=== PATIENT | male | born 1950 | race American Indian/Alaskan Native ===

== ENCOUNTER 2019-02-05 23:54 | Emergency (ER) | payer MEDICARE, MEDICAID | END 2019-02-06 10:44 | disposition home or self-care (01) | LOC: ED 23:54 | CPT/HCPCS: 36415; 70450; 80048; 80320; 85025; G0480 ==

== ENCOUNTER 2019-05-31 12:30 | Emergency (ER) | payer MEDICARE ==
--- NOTE | 2019-05-31 13:59 | Cat Scan Report ---
CT head/brain wo con INDICATION / CLINICAL INFORMATION: 68 years Male; CONFUSED AND DISOREINTED. TECHNIQUE: Routine CT head without contrast. All CT scans at this location are performed using CT dos e reduction for ALARA by means of automated exposure control. COMPARISON: Prior CT - 02/06/2019 FINDINGS: BRAIN / INTRACRANIAL CONTENTS: No acute hemorrhage, mass effect, midline shift, hydrocephalus, or acu te, large territorial infarct. Minimal cerebral atrophy. Mild degree of hippocampal atrophy suggested bilaterally. There are [id number], somewhat confluent areas of decreased attenuation in the white matter of the cerebral hemispheres, as well as the gangliocapsular regions. These are nonspecific findings and may be related to microangiopathy (hypertension, diabetes, atherosclerosis), given the patient's age. It might be difficult to evaluate for small areas of ischemia without diffusion imaging by MRI. Some component of pontine disease may be present. CRANIOCERVICAL JUNCTION: No significant abnormality. ORBITS: No significant abnormality of visualized orbits. SINUSES / MASTOIDS: No significant abnormality the visualized paranasal sinuses or mastoid air cells. ADDITIONAL FINDINGS: Atherosclerotic disease is seen in the anterior and posterior circulation. IMPRESSION: 1. No focal mass, hemorrhage, hydrocephalus, or acute, large territorial infarct. Signer Name: Ricki Ayala MD, III Signed: 05/31/2019 1:54 PM Workstation Name: [id number]
--- NOTE | 2019-05-31 14:52 | Emergency Department Report ---
ED General Adult HPI - General Chief complaint: Altered Mental Status Stated complaint: EYE PAIN Time Seen by Provider: 05/31/19 14:36 Source: patient Mode of arrival: Ambulatory Limitations: Physical Limitation - History of Present Illness Initial comments: 68-year-old male presents to ED with headache and left eye blurry vision for several months. Patient states he has had cataract surgery on both eyes last year. Patient reports he had a fall around [place] time last year, and has been having intermittent headaches since then. Patient also reports vision in his left eye became intermittently blurred 1 month ago. Patient states he has been seen at [place] previously for these headaches and was given a prescription for medication which helped the pain. Triage nurse listed chief complaint is altered mental status, however patient is not altered. Patient is able to tell me his name, date of , current month, current president, and that the current pandemic is due to the coronavirus. Patient is however, confused about the year. Patient denies fever, cough, shortness of breath. -: month(s) (1) Location: head, eyes Severity scale (0 -10): 0 Consistency: intermittent Improves with: medication Worsens with: none Associated Symptoms: headaches. denies: cough, fever/chills, nausea/vomiting, shortness of breath - Related Data Previous Rx's Medication Instructions Recorded Last Taken Type Naproxen [Naprosyn] 375 mg PO BID PRN #20 tablet 05/31/19 Unknown Rx Allergies Allergy/AdvReac Type Severity Reaction Status Date / Time No Known Allergies Allergy Verified 05/31/19 12:31 ED Review of Systems ROS: Stated complaint: EYE PAIN Other details as noted in HPI Comment: All other systems reviewed and negative Constitutional: denies: chills, fever Eyes: vision change Respiratory: denies: cough, shortness of breath Gastrointestinal: denies: nausea, vomiting, diarrhea Neurological: headache ED Past Medical Hx - Past Medical History Hx Diabetes: Yes Additional medical history: CATARACT SURG - Surgical History Additional Surgical History: CATARACT - Social History Smoking Status: Never Smoker Substance Use Type: None - Medications Home Medications: Home Medications Medication Instructions Recorded Confirmed Last Taken Type Naproxen [Naprosyn] 375 mg PO BID PRN #20 tablet 05/31/19 Unknown Rx ED Physical Exam - General Limitations: Physical Limitation General appearance: alert, in no apparent distress - Head Head exam: Present: atraumatic, normocephalic - Eye Eye exam: Present: normal appearance, PERRL, EOMI, other (vision grossly intact in each eye; able to identify colors and tell me how many fingers I am holding up) - ENT ENT exam: Present: mucous membranes moist - Neck Neck exam: Present: normal inspection - Respiratory Respiratory exam: Present: normal lung sounds bilaterally. Absent: respiratory distress - Cardiovascular Cardiovascular Exam: Present: regular rate, normal rhythm - GI/Abdominal GI/Abdominal exam: Present: soft. Absent: distended, tenderness - Extremities Exam Extremities exam: Present: normal inspection - Neurological Exam Neurological exam: Present: alert, oriented X3, CN II-XII intact, normal gait. Absent: motor sensory deficit - Psychiatric Psychiatric exam: Present: normal affect, normal mood - Skin Skin exam: Present: warm, dry, intact, normal color ED Course Vital Signs 05/31/19 05/31/19 12:36 15:03 Temperature 98.2 F Pulse Rate 88 62 Respiratory 20 16 Rate Blood Pressure 157/76 135/69 [Left] O2 Sat by Pulse 96 100 Oximetry ED Medical Decision Making - Radiology Data Radiology results: report reviewed, image reviewed - Medical Decision Making 68-year-old male presents to ED with headache and blurred vision for several months. Patient's vision is grossly intact. No neuro deficits noted. Patient is alert and oriented. CT head negative. No need for admission at this time. Outpatient follow-up advised. Return precautions given. - Differential Diagnosis Intracranial injury, tension headache, cataracts Critical care attestation.: If time is entered above; I have spent that time in minutes in the direct care of this critically ill patient, excluding procedure time. ED Disposition Clinical Impression: Headache, Blurred vision, left eye Disposition: DC- TO HOME OR SELFCARE Is pt being admited?: No Condition: Stable Instructions: Acute Headache (ED), Blurred Vision (ED) Prescriptions: Naproxen [Naprosyn] 375 mg PO BID PRN #20 tablet PRN Reason: pain Referrals: PRIMARY CARE, [Primary Care Provider] - 3-[address] [facility] [Provider Group] - 3-5 Days ROCIO BAINS MD [Staff Physician] - 3-5 Days DANYA GOMEZ MD [Staff Physician] - 3-5 Days Time of Disposition: 14:57
[2019-05-31 15:04] VITALS: BP 135/69
== END 2019-05-31 15:05 | disposition home or self-care (01) ==
LOC: ED 12:30
DX: R51 Headache (principal); H53.8 Other visual disturbances; E11.9 Type 2 diabetes mellitus without complications; Z98.42 Cataract extraction status, left eye
CPT/HCPCS: 70450

== ENCOUNTER 2019-06-24 13:24 | Emergency (ER) | payer MEDICARE ==
--- NOTE | 2019-06-24 16:20 | Emergency Department Report ---
ED Headache HPI - General Chief Complaint: Headache Stated Complaint: HEAD AND EYE PAIN Time Seen by Provider: 06/24/19 15:58 Source: patient Exam Limitations: no limitations - History of Present Illness Initial Comments: 68-year-old male presents to the ER today complaining of headache and blurry vision. Patient is a poor historian, but he reports that he has been having this left frontal/left temporal/left facial headache which has been intermittent since he fell around [facility] of 2018. He also reports that he has been having blurry vision to both eyes since the fall. Patient apparently had cataract surgery to both eyes sometime in 2019, he is not exactly sure when, but he knows it was done at [place]. He states after the surgery his vision was very clear, but since the fall it became blurry, its not any worse today just not getting better like it was. Patient was seen here on May 31, 2019 for similar symptoms. He had a repeat head CT which was negative for anything acute. Patient states that the pain in his head is just a "slight pain, that comes intermittently. patient was prescribed naproxen for pain which he admits that he has been taking as needed for pain and he has been helping. He denies any pain currently. Patient appears to be more concerned about the change in his vision. He denies any photophobia, eye redness, drainage, or double vision. He states that he does not recall the name of the surgeon who did his eye surgery. He states that he has not been able to get down to since the COVID-19 pandemic. He also does not have a primary care doctor. Patient denies any focal weakness, numbness, tingling, fever, chills, URI symptoms, neck pain or any other symptoms at this time. Timing/Duration: other (Since fallMay 30) Quality: mild Head Injury Location: frontal, temporal, other (left facial) Recent Head Trauma: chronic headaches, head trauma > 24 hrs ago (since around [place] of last yr) Associated Symptoms: facial pain. denies: confusion, fatigue, fever/chills, flushing, loss of consciousness, nausea/vomiting, nasal congestion, nasal drainage, numbness in legs/feet, rash, seizures, sinus infection, stiff neck, vision changes, weakness Allergies/Adverse Reactions: Allergies No Known Allergies Allergy (Verified 05/31/19 12:31) Home Medications: Ambulatory Orders Naproxen [Naprosyn] 375 mg PO BID PRN #20 tablet 05/31/19 ED Review of Systems ROS: Stated complaint: HEAD AND EYE PAIN Other details as noted in HPI Constitutional: denies: chills, fever Eyes: vision change. denies: eye pain, eye discharge, other ENT: denies: ear pain, throat pain Respiratory: no symptoms reported Cardiovascular: denies: chest pain, palpitations Musculoskeletal: denies: back pain, joint swelling, arthralgia Skin: denies: rash, lesions Neurological: headache. denies: weakness, numbness, paresthesias, confusion, abnormal gait Psychiatric: denies: anxiety, depression Hematological/Lymphatic: denies: easy bleeding, easy bruising ED Past Medical Hx - Past Medical History Previous Medical History?: Yes Hx Diabetes: Yes Additional medical history: CATARACT SURG - Surgical History Additional Surgical History: CATARACT - Social History Smoking Status: Never Smoker Substance Use Type: None - Medications Home Medications: Home Medications Medication Instructions Recorded Confirmed Last Taken Type Naproxen [Naprosyn] 375 mg PO BID PRN #20 tablet 05/31/19 Unknown Rx ED Physical Exam - General Limitations: No Limitations General appearance: alert, in no apparent distress - Head Head exam: Present: atraumatic, normocephalic, normal inspection - Eye Eye exam: Present: normal appearance, PERRL, EOMI, other (visual acuity reviewed ) Pupils: Present: normal accommodation - Neck Neck exam: Present: normal inspection, full ROM. Absent: tenderness, meningismus - Respiratory Respiratory exam: Absent: respiratory distress - Cardiovascular Cardiovascular Exam: Present: regular rate - Neurological Exam Neurological exam: Present: alert, oriented X3, CN II-XII intact, normal gait. Absent: motor sensory deficit - Psychiatric Psychiatric exam: Present: normal affect, normal mood - Skin Skin exam: Present: intact ED Course Vital Signs 06/24/19 13:34 Temperature 98.0 F Pulse Rate 101 H Respiratory 20 Rate Blood Pressure 147/90 O2 Sat by Pulse 100 Oximetry ED Medical Decision Making - Medical Decision Making Patient presents to the ER today complaining of headache and vision changes. The symptoms have been chronic since around [place] time of last year. Patient reports that they are not any worse today. Patient seems to be more concerned about the vision changes that is just not getting better to what it was after he had his cataract surgery last year. He has not been able to get down to [place] to see the surgeon who did his surgery and he currently does not have a primary care doctor. He has been taking naproxen as needed for headache which he states has been helping. At this time patient is awake, alert, and oriented x3 and he is neurologically intact. Visual acuity reviewed (20/40, 20/50 Both 20/40 without correction), remaining eye exam grossly normal. Fingerstick blood sugar is also normal. Work-up , admission or emergent consultation is not indicated at this time. I have strict discussion with patient that he needs to follow-up with the primary care doctor as listed on his discharge instructions also he should try to find the name of his surgeon who did his surgery and give him a call for follow-up about his vision changes. Patient stable at time of discharge. Critical care attestation.: If time is entered above; I have spent that time in minutes in the direct care of this critically ill patient, excluding procedure time. ED Disposition Clinical Impression: Chronic headache, Blurry vision, bilateral Disposition: DC-01 TO HOME OR SELFCARE Is pt being admited?: No Does the pt Need Aspirin: No Condition: Stable Instructions: Tension Headache (ED), Blurred Vision (ED) Additional Instructions: Continue naproxen twice a day as needed for headache. Make sure you take it with food. I strongly recommend that you follow-up with the primary care doctor given on your discharge instructions for further treatment and evaluation. I also strongly recommend that you try to follow-up with your cash applications specialist at [facility] who did your surgery for further evaluation of your vision. Return if worse. Referrals: HILARIO ZHAO MD [Staff Physician] - 3-5 Days Time of Disposition: 16:41
[2019-06-25 13:26] VITALS: BP 147/90
== END 2019-06-24 17:35 | disposition home or self-care (01) ==
LOC: ED 13:24
DX: H53.8 Other visual disturbances (principal); R51 Headache; E11.9 Type 2 diabetes mellitus without complications; Z98.890 Other specified postprocedural states; Z79.899 Other long term (current) drug therapy
CPT/HCPCS: 99282

== ENCOUNTER 2020-01-04 08:44 | Emergency (ER) | payer MEDICARE ==
[2020-01-04 12:50] LABS: Basophils # (Auto) 0.1 K/mm3 (0.0-0.1); Basophils % (Auto) 0.8 % (0.0-1.8); Eosinophils # (Auto) 0.2 K/mm3 (0.0-0.4); Hematocrit 43.4 % (35.5-45.6); Lymphocytes # (Auto) 3.1 K/mm3 (1.2-5.4); Lymphocytes % (Auto) 35.1 % (13.4-35.0); Mean Corpuscular HGB Conc 35 % (32-34); Mean Corpuscular Volume 84 fl (84-94); Monocytes # (Auto) 0.6 K/mm3 (0.0-0.8); Monocytes % (Auto) 6.9 % (0.0-7.3); Platelet Count 250 K/mm3 (140-440)
[2020-01-04 13:03] LABS: INR 0.95 (0.87-1.13); Partial Thromboplastin Time 26.4 Sec. (24.2-36.6)
[2020-01-04 13:05] LABS: Alanine Aminotransferase 21 units/L (7-56); Albumin 4.1 g/dL (3.9-5); BUN/Creatinine Ratio 13; Blood Urea Nitrogen 21 mg/dL (9-20); Calcium 9.3 mg/dL (8.4-10.2); Hemolysis Index 4
[2020-01-04 13:07] LABS: Bilirubin,Direct < 0.2 mg/dL (0-0.2)
--- NOTE | 2020-01-04 13:31 | Cat Scan Report ---
. CT HEAD WITHOUT CONTRAST INDICATION / CLINICAL INFORMATION: Gait disturbance, fall. TECHNIQUE: All CT scans at this location are performed using CT dose reduction for ALARA by means of automated e xposure control. COMPARISON: Head CT 05/31/2019 FINDINGS: HEMORRHAGE: None. EXTRA-AXIAL SPACES: Normal in size and morphology for the patient's age. VENTRICULAR SYSTEM: Normal in size and morphology for the patient's age. CEREBRAL PARENCHYMA: Extensive periventricular and deep white matter hypoattenuation again noted milly acteristic for microangiopathy. MIDLINE SHIFT OR HERNIATION: None. CEREBELLUM / BRAINSTEM: No significant abnormality. ORBITS: Normal as visualized. SOFT TISSUES of HEAD: No significant abnormality. CALVARIUM: No significant abnormality. PARANASAL SINUSES / MASTOID AIR CELLS: Normal as visualized. ADDITIONAL FINDINGS: None. IMPRESSION: 1. No intracranial bleed or large territorial infarction. 2. Extensive microangiopathy, unchanged Signer Name: Anjel Jessica MD Signed: 01/04/2020 1:26 PM Workstation Name: [id number]
--- NOTE | 2020-01-04 13:44 | Emergency Department Report ---
ED General Adult HPI - General Chief complaint: Weakness Stated complaint: WEAKNESS Time Seen by Provider: 01/04/20 10:14 Source: EMS Mode of arrival: Stretcher Limitations: No Limitations - History of Present Illness Initial comments: This is a 69-year old man with very vague and general symptoms for he states 2 to 3 weeks. He states he has not been able to get to see a doctor due to the virus. He does not complain of cough or shortness of breath fever or chills. He has vague symptoms of generalized weakness. He states that his "eyes have been bad for a long time". He complains of a vague sensation in his head which he states is not a headache. He does not complain of nausea vomiting or any acute change in his balance or gait. He denies any acute focal weakness. He is able to ambulate as usual with his cane. He does state that he lives alone. He does not report any problems with self-care. He does state that he has had occasional falls. However, he does not report any acute injury. -: Gradual, week(s) Location: head (As above indicated), eyes (As above indicated) Consistency: intermittent Associated Symptoms: denies other symptoms - Related Data Previous Rx's Medication Instructions Recorded Last Taken Type Naproxen [Naprosyn] 375 mg PO BID PRN #20 tablet 05/31/19 Unknown Rx Naproxen [Naprosyn] 375 mg PO BID PRN #10 tablet 01/04/20 Unknown Rx Allergies Allergy/AdvReac Type Severity Reaction Status Date / Time No Known Allergies Allergy Verified 05/31/19 12:31 ED Review of Systems ROS: Stated complaint: WEAKNESS Other details as noted in HPI Constitutional: weakness. denies: chills, fever Eyes: denies: eye pain, eye discharge, vision change ENT: denies: ear pain, throat pain Respiratory: denies: cough, shortness of breath Cardiovascular: denies: chest pain, palpitations Endocrine: no symptoms reported Gastrointestinal: denies: abdominal pain, nausea, diarrhea Genitourinary: denies: urgency, dysuria Musculoskeletal: denies: back pain, joint swelling, arthralgia Skin: denies: rash, lesions Neurological: denies: headache, weakness, paresthesias Psychiatric: denies: anxiety, depression Hematological/Lymphatic: denies: easy bleeding, easy bruising ED Past Medical Hx - Past Medical History Previous Medical History?: Yes Hx Diabetes: Yes Additional medical history: CATARACT SURG - Surgical History Past Surgical History?: Yes Additional Surgical History: CATARACT - Social History Smoking Status: Current Every Day Smoker Substance Use Type: None - Medications Home Medications: Home Medications Medication Instructions Recorded Confirmed Last Taken Type Naproxen [Naprosyn] 375 mg PO BID PRN #20 tablet 05/31/19 Unknown Rx Naproxen [Naprosyn] 375 mg PO BID PRN #10 tablet 01/04/20 Unknown Rx ED Physical Exam - General Limitations: No Limitations General appearance: alert, in no apparent distress - Head Head exam: Present: atraumatic, normocephalic - Eye Eye exam: Present: normal appearance, PERRL, EOMI. Absent: scleral icterus - ENT ENT exam: Present: mucous membranes moist - Neck Neck exam: Present: normal inspection. Absent: tenderness, meningismus - Respiratory Respiratory exam: Present: normal lung sounds bilaterally. Absent: respiratory distress - Cardiovascular Cardiovascular Exam: Present: regular rate, normal rhythm. Absent: systolic murmur, diastolic murmur, rubs, gallop - GI/Abdominal GI/Abdominal exam: Present: soft, normal bowel sounds. Absent: distended, tenderness, guarding, rebound - Rectal Rectal exam: Present: deferred - Extremities Exam Extremities exam: Present: normal inspection - Back Exam Back exam: Present: normal inspection - Neurological Exam Neurological exam: Present: alert, oriented X3, CN II-XII intact, normal gait, other (Cerebellar testing was normal). Absent: motor sensory deficit - Psychiatric Psychiatric exam: Present: normal affect, normal mood - Skin Skin exam: Present: warm, dry, intact, normal color. Absent: rash ED Course Vital Signs 01/04/20 01/04/20 01/04/20 09:59 10:00 10:01 Temperature 98.1 F Pulse Rate 86 81 Respiratory 22 22 Rate Blood Pressure 118/59 O2 Sat by Pulse 95 95 Oximetry 01/04/20 01/04/20 01/04/20 10:31 11:00 11:30 Temperature Pulse Rate 87 72 77 Respiratory 11 L 20 19 Rate Blood Pressure 127/89 129/78 132/79 O2 Sat by Pulse 99 94 96 Oximetry 01/04/20 01/04/20 01/04/20 11:40 12:00 12:31 Temperature Pulse Rate 76 87 Respiratory 14 15 Rate Blood Pressure 132/79 112/68 O2 Sat by Pulse 97 97 95 Oximetry 01/04/20 15:23 Temperature Pulse Rate Respiratory Rate Blood Pressure 126/72 O2 Sat by Pulse Oximetry - Reevaluation(s) Reevaluation #1: The patient was given IV fluids. He was able to walk at his baseline. He was discharged in stable condition. 01/04/20 17:14 Reevaluation #2: Patient's creatinine was a bit elevated compared to his prior of 1.4. He was given IV fluids. He is instructed to follow-up with a primary care provider. 01/04/20 17:16 ED Medical Decision Making - Lab Data Result diagrams: 01/04/20 12:30 01/04/20 12:30 Laboratory Results - last 24 hr 01/04/20 01/04/20 01/04/20 12:30 12:30 12:30 WBC 8.8 RBC 5.20 H Hgb 15.0 Hct 43.4 MCV 84 MCH 29 MCHC 35 H RDW 16.0 H Plt Count 250 Lymph % (Auto) 35.1 H [place] % (Auto) 6.9 Eos % (Auto) 2.0 Baso % (Auto) 0.8 Lymph # (Auto) 3.1 [place] # (Auto) 0.6 Eos # (Auto) 0.2 Baso # (Auto) 0.1 Seg Neutrophils % 55.2 Seg Neutrophils # 4.8 PT 12.6 INR 0.95 APTT 26.4 Sodium 140 Potassium 4.6 Chloride 105.4 Carbon Dioxide 22 Anion Gap 17 BUN 21 H Creatinine 1.6 H Estimated GFR 52 BUN/Creatinine Ratio 13 Glucose 69 L Calcium 9.3 Magnesium 2.20 Total Bilirubin 0.20 Direct Bilirubin < 0.2 Indirect Bilirubin 0.0 AST 15 ALT 21 Alkaline Phosphatase 72 Total Protein 7.5 Albumin 4.1 Albumin/Globulin Ratio 1.2 - Radiology Data COMPARISON: Head CT 05/31/2019 FINDINGS: HEMORRHAGE: None. EXTRA-AXIAL SPACES: Normal in size and morphology for the patient's age. VENTRICULAR SYSTEM: Normal in size and morphology for the patient's age. CEREBRAL PARENCHYMA: Extensive periventricular and deep white matter hypoattenuation again noted characteristic for microangiopathy. MIDLINE SHIFT OR HERNIATION: None. CEREBELLUM / BRAINSTEM: No significant abnormality. ORBITS: Normal as visualized. SOFT TISSUES of HEAD: No significant abnormality. CALVARIUM: No significant abnormality. PARANASAL SINUSES / MASTOID AIR CELLS: Normal as visualized. ADDITIONAL FINDINGS: None. IMPRESSION: 1. No intracranial bleed or large territorial infarction. 2. Extensive microangiopathy, unchanged Critical care attestation.: If time is entered above; I have spent that time in minutes in the direct care of this critically ill patient, excluding procedure time. ED Disposition Clinical Impression: Dehydration, Generalized weakness, Renal insufficiency Disposition: - TO HOME OR SELFCARE Is pt being admited?: No Does the pt Need Aspirin: No Condition: Stable Instructions: Fatigue, Dehydration, Adult, [id number] Additional Instructions: Return any acute change or problem. Prescriptions: Naproxen [Naprosyn] 375 mg PO BID PRN #10 tablet PRN Reason: Pain, Moderate (4-6) Referrals: [facility] [Provider Group] - 3-5 Days PRIMARY CARE, [Primary Care Provider] - 3-5 Days Time of Disposition: 17:17
[2020-01-04] MEDS ORDERED: SODIUM CHLORIDE 0.9% 1000 ML 1,000 ML IV ONE (13:45)
[2020-01-04] MEDS ORDERED: IBUPROFEN 600 MG TAB PO ONE (16:23)
[2020-01-04] MEDS ORDERED: IBUPROFEN 800 MG TAB ONE (16:24)
[2020-01-04 17:10] VITALS: BP 126/72
== END 2020-01-04 17:00 | disposition home or self-care (01) ==
LOC: ED 08:44
DX: E86.0 Dehydration (principal); N28.9 Disorder of kidney and ureter, unspecified; E11.9 Type 2 diabetes mellitus without complications; F17.200 Nicotine dependence, unspecified, uncomplicated
CPT/HCPCS: 36415; 70450; 80048; 80076; 83735; 85025; 85610; 85730; 96360; 99284; J7030; 96374

== ENCOUNTER 2020-03-26 11:06 | Outpatient (CLI) | payer MEDICARE ==
[2020-03-26 12:11] LABS: Basophils % (Auto) 0.5 % (0.0-1.8); Eosinophils # (Auto) 0.2 K/mm3 (0.0-0.4); Eosinophils % (Auto) 1.8 % (0.0-4.3); Hematocrit 42.8 % (35.5-45.6); Hemoglobin 14.6 gm/dl (11.8-15.2); Lymphocytes # (Auto) 3.1 K/mm3 (1.2-5.4); Lymphocytes % (Auto) 33.7 % (13.4-35.0); Mean Corpuscular HGB Conc 34 % (32-34); Mean Corpuscular Volume 85 fl (84-94); Monocytes # (Auto) 0.6 K/mm3 (0.0-0.8); Monocytes % (Auto) 6.8 % (0.0-7.3); Platelet Count 249 K/mm3 (140-440); Red Blood Count 5.06 M/mm3 (3.65-5.03); Red Cell Distribution Width 15.5 % (13.2-15.2)
[2020-03-26 12:19] LABS: Albumin 4.3 g/dL (3.9-5); Calcium 9.3 mg/dL (8.4-10.2); Chol/HDL Ratio 3.78 %
--- NOTE | 2020-03-26 12:50 | XRay Report ---
CHEST 2 VIEWS INDICATION: SHORTNESS OF BREATH. COMPARISON: 10/16/2019 FINDINGS: Support devices: None. Heart: Within normal limits. Lungs/pleura: No acute air space or interstitial disease. No pneumothorax. Additional findings: None. IMPRESSION: No acute findings. Signer Name: Donny Lozada Jr, MD Signed: 03/26/2020 12:43 PM Workstation Name: [id number]
[2020-03-29 12:27] LABS: Vitamin D, 25-OH, D2 <4 ng/mL
== END 2020-03-26 11:07 | disposition home or self-care (01) ==
LOC: XRAY 11:06
PROVIDERS: ATTEND Internal Medicine
DX: Z13.220 Encounter for screening for lipoid disorders (principal); Z13.29 Encounter for screening for other suspected endocrine disorder; R06.02 Shortness of breath; R39.11 Hesitancy of micturition; E55.9 Vitamin D deficiency, unspecified; Z00.00 Encounter for general adult medical examination without abnormal findings; E11.9 Type 2 diabetes mellitus without complications
CPT/HCPCS: 36415; 71046; 80053; 80061; 82306; 83036; 84153; 84443; 85025

== ENCOUNTER 2020-05-25 12:35 | Emergency (ER) | payer MEDICARE ==
--- NOTE | 2020-05-25 16:07 | Event Note ---
ED Screening Note Date of service: 05/25/20 Time: 16:03 ED Screening Note: Patient presents to the ER today with complaints of frontal headache and decreased vision to both eyes. Patient states that "my eyes not working right". He states "I cannot see out of them". He states that this has been going on and off for the past 2 to 3 months. He also reports unstable gait resulting in him falling and hitting his head. This has occurred twice in the past 2 to 3 months and difficulty with his memory. He waited here a few times for similar symptoms. He has had at least 3 head CTs over the course of the past year. He has not follow-up with the doll eye setter nor the neurologist. He states that he saw his primary care doctor once since he has been having the symptoms and he was prescribed "a medication". He typically wears reading glasses as needed Patient also complains of substernal chest pain on and off for the past 2 to 3 months. With associated shortness of breath at times. His past medical history significant for diabetes, hypertension and tobacco use. This initial assessment/diagnostic orders/clinical plan/treatment(s) is/are subject to change based on patients health status, clinical progression and re- assessment by fellow clinical providers in the ED. Further treatment and workup at subsequent clinical providers discretion. Patient/guardian urged not to elope from the ED as their condition may be serious if not clinically assessed and managed. Initial orders include: CBC, CMP, EKG, chest x-ray and troponin
[2020-05-25 16:44] LABS: Alanine Aminotransferase 22 units/L (7-56); BUN/Creatinine Ratio 11; Blood Urea Nitrogen 19 mg/dL (9-20); Calcium 9.5 mg/dL (8.4-10.2); Hemolysis Index 9
--- NOTE | 2020-05-25 16:56 | XRay Report ---
CHEST 2 VIEWS INDICATION / CLINICAL INFORMATION: chest pain. COMPARISON: 03/26/2020 FINDINGS: SUPPORT DEVICES: None. HEART / MEDIASTINUM: No significant abnormality. LUNGS / PLEURA: No significant pulmonary or pleural abnormality. No pneumothorax. ADDITIONAL FINDINGS: No significant additional findings. IMPRESSION: No significant abnormality or interval change from 03/26/2020 Signer Name: Marcelo Renee MD FACR Signed: 05/25/2020 4:51 PM Workstation Name: [id number]
[2020-05-25 16:58] LABS: Basophils # (Auto) 0.1 K/mm3 (0.0-0.1); Basophils % (Auto) 0.7 % (0.0-1.8); Eosinophils # (Auto) 0.2 K/mm3 (0.0-0.4); Eosinophils % (Auto) 1.6 % (0.0-4.3); Hematocrit 44.2 % (35.5-45.6); Hemoglobin 15.1 gm/dl (11.8-15.2); Lymphocytes # (Auto) 3.3 K/mm3 (1.2-5.4); Lymphocytes % (Auto) 35.5 % (13.4-35.0); Mean Corpuscular HGB Conc 34 % (32-34); Mean Corpuscular Volume 84 fl (84-94); Monocytes # (Auto) 0.7 K/mm3 (0.0-0.8); Monocytes % (Auto) 7.2 % (0.0-7.3); Platelet Count 239 K/mm3 (140-440); Red Blood Count 5.27 M/mm3 (3.65-5.03); Red Cell Distribution Width 15.7 % (13.2-15.2)
--- NOTE | 2020-05-25 23:48 | Emergency Department Report ---
ED Chest Pain HPI - General Chief Complaint: Headache Stated Complaint: EYES/HEAD PAIN BALANCE OFF Time Seen by Provider: 05/25/20 14:41 Source: patient Mode of arrival: Ambulatory Limitations: No Limitations - History of Present Illness Initial Comments: This is a 69-year-old male who presents to the emergency department with complaint of a frontal headache, blurry vision/double vision, and some midsternal chest pain, that all have been going on since about of last year. The patient says that he has a frontal headache that he describes as constant. He denies any fever. Currently it is 5 out of 10 in intensity. The patient also describes some blurry vision/double vision that has been going on intermittently since January of last year. He says that he was set up for an appointment with an product builder but he somehow missed that appointment. The chest pain is currently 4 out of 10 in intensity and is midsternal without radi ation. He denies any shortness of breath, nausea, vomiting, back pain or diaphoresis. Patient says that he followed up with his PCP, Dr. Hebert in March of this year and had some blood work done and was referred to the product builder. He has not taken anything today for his symptoms prior to presentation. No recent travel or sick contacts at home. He is a tobacco smoker but denies any illicit drug use. - Related Data Previous Rx's Medication Instructions Recorded Last Taken Type Naproxen [Naprosyn] 375 mg PO BID PRN #20 tablet 05/31/19 Unknown Rx Naproxen [Naprosyn] 375 mg PO BID PRN #10 tablet 01/04/20 Unknown Rx Allergies Allergy/AdvReac Type Severity Reaction Status Date / Time No Known Allergies Allergy Verified 05/31/19 12:31 Heart Score - HEART Score History: Slightly suspicious EKG: Normal Age: > 65 Risk factors: 1-2 risk factors Troponin: < normal limit HEART Score: 3 - EKG Read Time Time EKG Completed: 01:02 EKG Read Time: 01:05 - Critical Actions Critical Actions: 0-3 pts:0.9-1.7%risk of adverse cardiac event.Candidate for discharge ED Review of Systems ROS: Stated complaint: EYES/HEAD PAIN BALANCE OFF Other details as noted in HPI Comment: All other systems reviewed and negative Constitutional: denies: chills, fever Eyes: vision change (Blurry/double vision x4 months). denies: eye pain ENT: denies: ear pain, throat pain Respiratory: denies: cough, shortness of breath Cardiovascular: chest pain. denies: palpitations Gastrointestinal: denies: abdominal pain, vomiting Genitourinary: denies: dysuria, discharge Musculoskeletal: denies: back pain, arthralgia Skin: denies: rash, lesions Neurological: headache. denies: weakness, numbness, paresthesias ED Past Medical Hx - Past Medical History Previous Medical History?: Yes Hx Diabetes: Yes Additional medical history: CATARACT SURG - Surgical History Past Surgical History?: Yes Additional Surgical History: CATARACT - Social History Smoking Status: Never Smoker Substance Use Type: None - Medications Home Medications: Home Medications Medication Instructions Recorded Confirmed Last Taken Type Naproxen [Naprosyn] 375 mg PO BID PRN #20 tablet 05/31/19 Unknown Rx Naproxen [Naprosyn] 375 mg PO BID PRN #10 tablet 01/04/20 Unknown Rx ED Physical Exam - General Limitations: No Limitations - Other Other exam information: GENERAL: The patient is well-developed well-nourished. HENT: Normocephalic. Atraumatic. Patient has moist mucous membranes. EYES: Extraocular motions are intact. Pupils equal reactive to light bilaterally. Visual acuity: 20/40 right and left eyes, 20/25 both eyes. NECK: Supple. Trachea is midline. CHEST/LUNGS: Clear to auscultation. There is no respiratory distress noted. HEART/CARDIOVASCULAR: Regular. There is no tachycardia. There is no murmur. ABDOMEN: Abdomen is soft, nontender. Patient has normal bowel sounds. SKIN: Skin is warm and dry. NEURO: The patient is awake, alert, and oriented. The patient is cooperative. The patient has no focal neurologic deficits. Normal speech. Cranial nerves II through XII grossly intact. No pronator drift or dysmetria. No facial asymmetry. MUSCULOSKELETAL: There is no tenderness or deformity. There is no limitation range of motion. ED Course Vital Signs 05/25/20 13:45 Temperature 98.4 F Pulse Rate 94 H Respiratory 18 Rate Blood Pressure 139/64 O2 Sat by Pulse 98 Oximetry DAT score - Dat Score Age > 65: (0) No Aspirin use within the Past 7 Days: (0) No 3 or more CAD Risk Factors: (0) No 2 or more Angina events in past 24 hrs: (1) Yes Known CAD with more than 50% Stenosis: (0) No Elevated Cardiac Markers: (0) No ST Deviation Greater than 0.5mm: (0) No DAT Score: 1 ED Medical Decision Making - Lab Data Result diagrams: 05/25/20 16:07 05/25/20 16:07 Lab Results 05/25/20 05/25/20 05/25/20 Range/Units 16:07 16:07 23:52 WBC 9.4 (4.5-11.0) K/mm3 RBC 5.27 H (3.65-5.03) M/mm3 Hgb 15.1 (11.8-15.2) gm/dl Hct 44.2 (35.5-45.6) % MCV 84 (84-94) fl MCH 29 (28-32) pg MCHC 34 (32-34) % RDW 15.7 H (13.2-15.2) % Plt Count 239 (140-440) K/mm3 Lymph % (Auto) 35.5 H (13.4-35.0) % Nelson % (Auto) 7.2 (0.0-7.3) % Eos % (Auto) 1.6 (0.0-4.3) % Baso % (Auto) 0.7 (0.0-1.8) % Lymph # (Auto) 3.3 (1.2-5.4) K/mm3 Nelson # (Auto) 0.7 (0.0-0.8) K/mm3 Eos # (Auto) 0.2 (0.0-0.4) K/mm3 Baso # (Auto) 0.1 (0.0-0.1) K/mm3 Seg Neutrophils % 55.0 (40.0-70.0) % Seg Neutrophils # 5.2 (1.8-7.7) K/mm3 Sodium 138 (137-145) mmol/L Potassium 4.7 (3.6-5.0) mmol/L Chloride 102.4 (98-107) mmol/L Carbon Dioxide 24 (22-30) mmol/L Anion Gap 16 mmol/L BUN 19 (9-20) mg/dL Creatinine 1.7 H (0.8-1.3) mg/dL Estimated GFR 49 ml/min BUN/Creatinine Ratio 11 % Glucose 191 H (75-100) mg/dL Calcium 9.5 (8.4-10.2) mg/dL Magnesium 1.80 (1.7-2.3) mg/dL Total Bilirubin 0.20 (0.1-1.2) mg/dL AST 17 (5-40) units/L ALT 22 (7-56) units/L Alkaline Phosphatase 83 (35-129) units/L Troponin T < 0.010 < 0.010 (0.00-0.029) ng/mL Total Protein 7.3 (6.3-8.2) g/dL Albumin 4.0 (3.9-5) g/dL Albumin/Globulin Ratio 1.2 % TSH (0.270-4.200) mlU/mL 05/25/20 Range/Units 23:52 WBC (4.5-11.0) K/mm3 RBC (3.65-5.03) M/mm3 Hgb (11.8-15.2) gm/dl Hct (35.5-45.6) % MCV (84-94) fl MCH (28-32) pg MCHC (32-34) % RDW (13.2-15.2) % Plt Count (140-440) K/mm3 Lymph % (Auto) (13.4-35.0) % Nelson % (Auto) (0.0-7.3) % Eos % (Auto) (0.0-4.3) % Baso % (Auto) (0.0-1.8) % Lymph # (Auto) (1.2-5.4) K/mm3 Nelson # (Auto) (0.0-0.8) K/mm3 Eos # (Auto) (0.0-0.4) K/mm3 Baso # (Auto) (0.0-0.1) K/mm3 Seg Neutrophils % (40.0-70.0) % Seg Neutrophils # (1.8-7.7) K/mm3 Sodium (137-145) mmol/L Potassium (3.6-5.0) mmol/L Chloride (98-107) mmol/L Carbon Dioxide (22-30) mmol/L Anion Gap mmol/L BUN (9-20) mg/dL Creatinine (0.8-1.3) mg/dL Estimated GFR ml/min BUN/Creatinine Ratio % Glucose (75-100) mg/dL Calcium (8.4-10.2) mg/dL Magnesium (1.7-2.3) mg/dL Total Bilirubin (0.1-1.2) mg/dL AST (5-40) units/L ALT (7-56) units/L Alkaline Phosphatase (35-129) units/L Troponin T (0.00-0.029) ng/mL Total Protein (6.3-8.2) g/dL Albumin (3.9-5) g/dL Albumin/Globulin Ratio % TSH 2.130 (0.270-4.200) mlU/mL - EKG Data -: EKG Interpreted by Me EKG shows normal: sinus rhythm, axis, intervals, QRS complexes, ST-T waves Rate: bradycardia (59 bpm) - EKG Data When compared to previous EKG there are: previous EKG unavailable Interpretation: normal EKG - Radiology Data Radiology results: report reviewed, image reviewed interpreted by me: Chest x-ray does not show any acute process. There are no pleural effusions, obvious pneumonia and there is no pneumothorax. No significant cardiomegaly. CT HEAD WITHOUT CONTRAST INDICATION: Patient complains of a headache. TECHNIQUE: All CT scans at this location are performed using CT dose reduction for ALARA by means of automated exposure control. COMPARISON: 01/04/2020 FINDINGS: HEMORRHAGE: None. EXTRA-AXIAL SPACES: Normal in size and morphology for the patient's age. VENTRICULAR SYSTEM: Normal in size and morphology for the patient's age. BRAIN PARENCHYMA: No acute findings. Extensive microangiopathic changes are again noted. MIDLINE SHIFT OR HERNIATION: None. ORBITS: Normal as visualized. SOFT TISSUES OF HEAD: Normal. CALVARIUM: Normal. VISUALIZED PARANASAL SINUSES AND MASTOID AIR CELLS: Clear. ADDITIONAL FINDINGS: None. IMPRESSION: 1. No acute intracranial abnormality. - Medical Decision Making This patient presents to the emergency department with what appears to be chronic issues going on over the past 4 months. This includes a frontal headache, intermittent midsternal chest pain, and some blurry vision. On examination he does not have any focal, motor or sensory deficits and his cranial nerves are intact. Heart and lung sounds are normal to auscultation and the patient does not appear in any respiratory or acute distress. EKG did not have any morphology consistent with ST elevation myocardial infarction or any dysrhythmia. Chest x-ray does not show any pneumonia, pleural effusions, pneumothorax, focal consolidation, or any other acute process. CT scan of the head without contrast did not show any bleed, large vessel occlusion, or any other acute process. The patient is a 0 on the NIH stroke scale. His labs have been unremarkable including CBC, metabolic panel, negative troponins x2. The patient does not have any risk factors for thromboembolic disease and is low on the Wells score criteria. The patient is low on the heart and DAT score. At the time of my examination he denies having any chest pain or headache. For all these reasons the patient appears safe for discharge home at this time. His contact information has been sent over to the [facility] vascular sawyer, and someone from their office should be contacting him shortly for close outpatient follow-up as part of our [facility] low risk chest pain protocol. He will also be given outpatient referrals for ophthalmology and neurology. He has been instructed to follow-up with his PCP. He will return to the closest emergency department with any worsening of his symptoms or with any acute distress. Critical Care Time: No Critical care attestation.: If time is entered above; I have spent that time in minutes in the direct care of this critically ill patient, excluding procedure time. ED Disposition Clinical Impression: Intermittent chest pain, Blurry vision Chronic headache Qualifiers: Headache type: unspecified Intractability: not intractable Qualified Code(s): R51.9 - Headache, unspecified; G89.29 - Other chronic pain Disposition: TO HOME OR SELFCARE Is pt being admited?: No Condition: Stable Instructions: Blurred Vision, Adult, General Headache Without Cause, Nonspecific Chest Pain, Adult Additional Instructions: Please follow-up with your primary care physician in the next few days. I am giving you a referral for a local product builder, Dr. Rocio Guy, to follow-up regarding your blurry vision. I am giving you a referral for a local neurologist, Dr. Cabrera, to follow-up regarding your headaches. I am sending your contact information over to the [facility] vascular sawyer, and someone from their office should be contacting you shortly for close outpatient follow-up. Just in case I am giving you a referral for one of their [place] terminal agent, Dr. Rivas. Return to the emergency department with any worsening of your symptoms, new or concerning symptoms not addressed during this current emergency department visit, or with any acute distress. Referrals: HILARIO HEBERT MD [Primary Care Provider] - 2-3 Days MCKINLEY RIVAS MD [Staff Physician] - 2-3 Days CADY CABRERA MD [Referring] - 2-3 Days ROCIO GUY MD [Staff Physician] - 2-3 Days Time of Disposition: 01:39
--- NOTE | 2020-05-26 00:49 | Cat Scan Report ---
CT HEAD WITHOUT CONTRAST INDICATION: Patient complains of a headache. TECHNIQUE: All CT scans at this location are performed using CT dose reduction for ALARA by means of automated e xposure control. COMPARISON: 01/04/2020 FINDINGS: HEMORRHAGE: None. EXTRA-AXIAL SPACES: Normal in size and morphology for the patient's age. VENTRICULAR SYSTEM: Normal in size and morphology for the patient's age. BRAIN PARENCHYMA: No acute findings. Extensive microangiopathic changes are again noted. MIDLINE SHIFT OR HERNIATION: None. ORBITS: Normal as visualized. SOFT TISSUES OF HEAD: Normal. CALVARIUM: Normal. VISUALIZED PARANASAL SINUSES AND MASTOID AIR CELLS: Clear. ADDITIONAL FINDINGS: None. IMPRESSION: 1. No acute intracranial abnormality. Signer Name: Boni Chavis MD Signed: 05/26/2020 12:44 AM Workstation Name: [id number]
[2020-05-26] MEDS ORDERED: ASPIRIN 81 MG TAB CHEW PO ONE (00:51)
[2020-05-26 02:52] VITALS: BP 132/77
--- NOTE | 2020-05-26 10:08 | Electrocardiograph Report ---
[facility] Test Date: 2020-05-26 Test Time: 01:02:23 Pat Name: SHELLEY CHEN Department: Room: Gender: M Customer Project Manager: ERIC : 1950 Requested By: VIK HALE Order Number: [id number] Reading MD: Arabella Varela Measurements Intervals [place] Rate: 59 P: 30 WV: 142 QRS: 14 QRSD: 88 T: 45 QT: 414 QTc: 410 Interpretive Statements Sinus bradycardia Early repolarization ST changes No previous ECG available for comparison Electronically Signed On 05-26-2020 10:08:22 EDT by Arabella Varela
== END 2020-05-26 02:53 | disposition home or self-care (01) ==
LOC: ED 12:35
DX: R51.9 Headache, unspecified (principal); R07.89 Other chest pain; H53.8 Other visual disturbances; E11.9 Type 2 diabetes mellitus without complications; Z98.890 Other specified postprocedural states; Z79.899 Other long term (current) drug therapy
CPT/HCPCS: 36415; 70450; 71046; 80053; 83735; 84443; 84484; 85025; 93005

== ENCOUNTER 2020-08-06 10:35 | Outpatient (CLI) | payer MEDICARE ==
[2020-08-06 11:30] LABS: Chol/HDL Ratio 7.46 %
== END 2020-08-06 10:36 | disposition home or self-care (01) ==
LOC: LAB 10:35
PROVIDERS: ATTEND Internal Medicine
DX: E11.65 Type 2 diabetes mellitus with hyperglycemia (principal); R73.9 Hyperglycemia, unspecified
CPT/HCPCS: 36415; 80061; 83036